=== PATIENT | female | born 1985 | race Caucasian/White ===

== ENCOUNTER 2017-08-22 09:26 | Inpatient (IN) | payer MEDICAID ==
[2017-08-22] MEDS ORDERED: METHYLERGONOVINE 0.2 MG INJ IM ×2 (10:00→17:30)
[2017-08-22] MEDS ORDERED: CARBOPROST 250 MCG INJ IM ×2 (10:00→17:30)
[2017-08-22] MEDS ORDERED: OXYTOCIN 30 UNITS/LR 500 ML IV ×3 (10:00→17:30)
[2017-08-22] MEDS ORDERED: MISOPROSTOL 200 MCG TAB PR ×2 (10:00→17:30)
[2017-08-22 10:16] LABS: ADD MAN DIFF? NO
[2017-08-22 10:18] LABS: BASOPHILS % 0.3 % (0.0-2.0); EOSINOPHILS # 0.1 10^3/ul (0.0-0.5); EOSINOPHILS % 1.1 % (0.0-7.0); HEMATOCRIT 40.4 % (37.0-47.0); HEMOGLOBIN 13.3 g/dl (12.0-16.0); LYMPHOCYTES # 1.9 10^3/ul (0.8-2.9); LYMPHOCYTES % 17.4 % (15.0-51.0); MEAN CORPUSCULAR HGB CONC 32.9 g/dl (32.0-37.0); MEAN PLATELET VOLUME 12.5 fl (7.4-10.4); MONOCYTE # 0.7 10^3/ul (0.3-0.9); MONOCYTES % 6.3 % (0.0-11.0); NEUTROPHIL # 7.9 10^3/ul (1.6-7.5); NEUTROPHILS % 74.2 % (39.0-77.0); PLATELET COUNT 168 10^3/UL (140-415); RED BLOOD COUNT 4.59 10^6/ul (4.20-5.40); RED CELL DISTRIBUTION WIDTH 14.4 % (11.5-14.5)
[2017-08-22 10:18] LABS: WHITE BLOOD COUNT 10.7 10^3/ul (4.8-10.8)
[2017-08-22] MEDS: CEFAZOLIN 2 GM/50 ML (PMX) 50 ML IVPB (10:30)
[2017-08-22] MEDS: LACTATED RINGER'S 1,000 ML IV ×3 (10:42→15:02)
[2017-08-22 10:43] LABS: PROTIME 12.2 Sec (11.9-14.9)
[2017-08-22 10:44] LABS: PARTIAL THROMBOPLASTIN TIME 26.3 Sec (25.0-35.0)
[2017-08-22] MEDS: TERBUTALINE 1 MG/ML INJ SC (11:04)
[2017-08-22 13:19] LABS: HEPATITIS B SURFACE ANTIGEN NEGATIVE (NEGATIVE)
[2017-08-22] MEDS: CITRIC ACID/SODIUM CITRATE 15 ML CUP PO (15:13)
[2017-08-22] MEDS: METOCLOPRAMIDE 10 MG INJ IV (15:15)
[2017-08-22] MEDS: FAMOTIDINE 20 MG INJ IV (15:19)
[2017-08-22 16:06] LABS: RAPID PLASMA REAGIN NONREACTIVE (NR)
[2017-08-22] MEDS ORDERED: BUPIVACAINE 0.75%/DEXT (SPINAL) 2 ML INJ (16:06)
[2017-08-22] MEDS ORDERED: morphine SULFATE/PF (10 MG/10 ML) INJ (16:06)
[2017-08-22] MEDS ORDERED: PHENYLephrine (100 MCG/ML) 10ML SYG (16:20)
[2017-08-22] MEDS ORDERED: ONDANSETRON 4 MG INJ (16:36)
[2017-08-22] MEDS ORDERED: HYDROmorphONE 1 MG/5 ML IV SYRINGE IV ×3 (17:00)
[2017-08-22] MEDS ORDERED: ONDANSETRON 4 MG INJ IV ×2 (17:00→19:00)
[2017-08-22] MEDS ORDERED: PROCHLORPERAZINE 10 MG INJ IV (17:00)
[2017-08-22] MEDS ORDERED: FENTAnyl 50 MCG/ML VIAL IV ×3 (17:00)
[2017-08-22] MEDS ORDERED: DIPHENHYDRAMINE 50 MG INJ IV ×2 (17:00→19:00)
[2017-08-22] MEDS ORDERED: MEPERIDINE 25 MG INJ IV (17:00)
[2017-08-22] MEDS ORDERED: DEXTROSE 5%-LR 1,000 ML IV (17:26)
[2017-08-22] MEDS ORDERED: METHYLERGONOVINE 0.2 MG TAB PO (17:30)
[2017-08-22] MEDS: OXYCODONE/ACETAMINOPHEN (5/325) TAB PO (17:30)
[2017-08-22] MEDS: OXYTOCIN 30 UNITS/LR 500 ML IV ×2 (18:18→22:41)
[2017-08-22] MEDS ORDERED: NALOXONE (0.4 MG/ML) INJ IV (19:00)
[2017-08-22] MEDS ORDERED: HYDROmorphONE 0.5 MG/0.5 ML SYG IV ×2 (19:00)
[2017-08-22] MEDS ORDERED: ZOLPIDEM 5 MG TAB PO (19:00)
[2017-08-22] MEDS: KETOROLAC 30 MG INJ IV (19:19)
[2017-08-22 19:58] LABS: ADD MAN DIFF? NO
[2017-08-22 20:03] LABS: BASOPHILS % 0.2 % (0.0-2.0); EOSINOPHILS # 0.1 10^3/ul (0.0-0.5); EOSINOPHILS % 0.7 % (0.0-7.0); HEMATOCRIT 38.4 % (37.0-47.0); HEMOGLOBIN 12.5 g/dl (12.0-16.0); LYMPHOCYTES # 2.3 10^3/ul (0.8-2.9); LYMPHOCYTES % 16.9 % (15.0-51.0); MEAN CORPUSCULAR HEMOGLOBIN 28.9 pg (29.0-33.0); MEAN CORPUSCULAR HGB CONC 32.6 g/dl (32.0-37.0); MEAN CORPUSCULAR VOLUME 88.9 fl (82.0-101.0); MEAN PLATELET VOLUME 12.7 fl (7.4-10.4); MONOCYTE # 0.7 10^3/ul (0.3-0.9); MONOCYTES % 4.8 % (0.0-11.0); NEUTROPHIL # 10.3 10^3/ul (1.6-7.5); PLATELET COUNT 149 10^3/UL (140-415); RED BLOOD COUNT 4.32 10^6/ul (4.20-5.40); RED CELL DISTRIBUTION WIDTH 14.6 % (11.5-14.5)
[2017-08-22 20:03] LABS: WHITE BLOOD COUNT 13.6 10^3/ul (4.8-10.8)
[2017-08-22 20:13] LABS: ADD UMIC YES; UR ASCORBIC ACID NEGATIVE (NEGATIVE); UR BILIRUBIN (Dip) NEGATIVE (NEGATIVE); UR BLOOD (Dip) 1+ mg/dL (NEGATIVE); UR CLARITY CLEAR (CLEAR); UR COLOR STRAW (YELLOW); UR GLUCOSE (Dip) NEGATIVE (NEGATIVE); UR KETONES (Dip) NEGATIVE (NEGATIVE); UR LEUKOCYTE ESTERASE (Dip) NEGATIVE Leu/ul (NEGATIVE); UR NITRITE (Dip) NEGATIVE (NEGATIVE); UR RBC 4 /HPF (0-5); UR TOTAL PROTEIN (Dip) NEGATIVE (NEGATIVE); UR UROBILINOGEN (Dip) NEGATIVE (NEGATIVE); UR WBC 0 /HPF (0-5)
[2017-08-22 20:19] LABS: ALANINE AMINOTRANSFERASE 20 IU/L (13-69); ALBUMIN 2.9 g/dl (3.3-4.9); ALBUMIN/GLOBULIN RATIO 1.11; ALKALINE PHOSPHATASE 183 IU/L (42-121); ANION GAP 12 (8-16); ASPARTATE AMINO TRANSFERASE 17 IU/L (15-46); BILIRUBIN,INDIRECT 0.1 mg/dl (0-1.1); BILIRUBIN,TOTAL 0.1 mg/dl (0.2-1.3); BLOOD UREA NITROGEN 4 mg/dl (7-20); CALCIUM 8.6 mg/dl (8.4-10.2); CARBON DIOXIDE 25 mmol/L (21-31); CHLORIDE 104 mmol/L (97-110); CREATININE 0.46 mg/dl (0.44-1.00); GLUCOSE 71 mg/dl (70-220); POTASSIUM 4.1 mmol/L (3.5-5.1); SODIUM 137 mmol/L (135-144); TOTAL PROTEIN 5.5 g/dl (6.1-8.1); URIC ACID 3.2 mg/dl (3.1-7.9)
[2017-08-22 20:20] LABS: INR 0.87; PROTIME 11.9 Sec (11.9-14.9); PT RATIO 0.9
[2017-08-22 20:44] LABS: PARTIAL THROMBOPLASTIN TIME 26.5 Sec (25.0-35.0)
[2017-08-22] MEDS: SENNA/DOCUSATE NA (8.6MG/50MG) TAB PO (21:00)
[2017-08-22] MEDS: LANOLIN 7 GM TUBE TOP (22:40)
[2017-08-23] MEDS: OXYCODONE/ACETAMINOPHEN (5/325) TAB PO ×4 (01:30→19:47)
[2017-08-23] MEDS: KETOROLAC 30 MG INJ IV ×2 (05:27→13:59)
[2017-08-23 08:11] LABS: ADD MAN DIFF? NO
[2017-08-23 08:15] LABS: WHITE BLOOD COUNT 12.4 10^3/ul (4.8-10.8)
[2017-08-23 08:15] LABS: BASOPHILS % 0.2 % (0.0-2.0); EOSINOPHILS # 0.1 10^3/ul (0.0-0.5); EOSINOPHILS % 1.1 % (0.0-7.0); HEMATOCRIT 35.6 % (37.0-47.0); HEMOGLOBIN 11.7 g/dl (12.0-16.0); LYMPHOCYTES % 16.4 % (15.0-51.0); MEAN CORPUSCULAR HGB CONC 32.9 g/dl (32.0-37.0); MEAN CORPUSCULAR VOLUME 88.3 fl (82.0-101.0); MEAN PLATELET VOLUME 12.7 fl (7.4-10.4); MONOCYTE # 0.8 10^3/ul (0.3-0.9); MONOCYTES % 6.3 % (0.0-11.0); NEUTROPHIL # 9.4 10^3/ul (1.6-7.5); NEUTROPHILS % 75.5 % (39.0-77.0); PLATELET COUNT 136 10^3/UL (140-415); RED BLOOD COUNT 4.03 10^6/ul (4.20-5.40); RED CELL DISTRIBUTION WIDTH 14.6 % (11.5-14.5)
[2017-08-23] MEDS: SENNA/DOCUSATE NA (8.6MG/50MG) TAB PO ×2 (08:31→21:17)
[2017-08-23] MEDS: LACTATED RINGER'S 1,000 ML IV (08:33)
[2017-08-23] MEDS: IBUPROFEN 800 MG TAB PO (22:17)
[2017-08-24] MEDS: OXYCODONE/ACETAMINOPHEN (5/325) TAB PO ×4 (01:30→18:13)
[2017-08-24] MEDS: IBUPROFEN 800 MG TAB PO ×3 (05:57→21:34)
[2017-08-24] MEDS: SENNA/DOCUSATE NA (8.6MG/50MG) TAB PO ×2 (08:33→21:34)
[2017-08-25] MEDS: OXYCODONE/ACETAMINOPHEN (5/325) TAB PO ×2 (00:51→09:25)
[2017-08-25] MEDS: IBUPROFEN 800 MG TAB PO ×2 (05:33→14:00)
[2017-08-25] MEDS: SENNA/DOCUSATE NA (8.6MG/50MG) TAB PO (08:43)
[2017-08-25] MEDS: MAGNESIUM HYDROXIDE 30ML CUP PO (08:44)
[2017-08-25] MEDS: MEASLES,MUMPS,RUBELLA VACCINE INJ SC* (12:18)
[2017-08-25] MEDS: DIPHTH/TET/ACEL PERTUSS (ADULT) 0.5 ML VIAL IM* (12:20)
== END 2017-08-25 15:59 | disposition home or self-care (01) | DRG 766 ==
LOC: L-D 09:26 → PP1 21:15
PROVIDERS: Obstetrics & Gynecology
PROC: 10D00Z1 Extraction of Products of Conception, Low, Open Approach (ICD-10-PCS; principal; 2017-08-22 17:00)
DX: O34.211 Maternal care for low transverse scar from previous cesarean delivery (principal); Z3A.39 39 weeks gestation of pregnancy; Z37.0 Single live birth
CPT/HCPCS: 80053; 81001; 84560; 85025; 85384; 85610; 85730; 86592; 86850; 86900; 86901; 87340; 90715; 99464